=== PATIENT | female | born 1975 | race Caucasian/White ===

== ENCOUNTER 2020-08-06 14:09 | Emergency (ER) | payer SELFPAY ==
[~2020-08-06] VITALS: Ht 165.1 cm; Wt 68.0 kg
[~2020-08-06 14:09] MED LIST: ALLERGY RELIEF10 MG PO; DOXYCYCLINE MO100 MG PO; MOTRIN800 MG PO; PREDNICOT20 MG PO; TYLENOL W/CODEI1 TA2 PO
[2020-08-06] MEDS ORDERED: CYCLOBENZAPRINE5 M3 PO (15:39)
[2020-08-06] MEDS ORDERED: PREDNISONE20 M1 PO (15:39)
== END 2020-08-06 15:45 | disposition home or self-care (01) ==
LOC: ED 14:09
DX: M54.16 Radiculopathy, lumbar region (principal); Z88.0 Allergy status to penicillin; Z88.2 Allergy status to sulfonamides; Z79.899 Other long term (current) drug therapy